=== PATIENT | female | born 1970 | race Caucasian/White ===

== ENCOUNTER 2019-06-18 07:00 | Day surgery (SDC) | payer OTHER ==
[~2019-06-18] VITALS: Ht 175.3 cm; Wt 86.2 kg
[~2019-06-18 07:00] MED LIST: LEVO125T4 PO; LIDOCAINE 2% INJ 100 MG/5 ML SDV (FOR ANES.) As Ordered ONE; NS 1,000 ML IV SCH
[2019-06-18] MEDS ORDERED: PROPOFOL 200 MG/20 ML VIAL As Ordered ONE ×2 (07:41→08:22)
--- NOTE | 2019-06-18 08:31 | ROOR ---
Patient Name: Kayla Buchanan Procedure Date: 06/18/2019 8:10 AM Date of : 1970 Age: 49 Room: [facility] Gender: Female Note Status: Finalized Procedure: Colonoscopy Indications: Heme positive stool Providers: Juan Chowdary DO Referring MD: ANTONI SÁNCHEZ DO Requesting Provider: Medicines: Propofol per Anesthesia Complications: No immediate complications. Procedure: Pre-Anesthesia Assessment: - Prior to the procedure, a History and Physical was performed, and patient medications and allergies were reviewed. The patient is competent. The risks and benefits of the procedure and the sedation options and risks were discussed with the patient. All questions were answered and informed consent was obtained. Patient identification and proposed procedure were verified by the physician, the nurse, the anesthesiologist and the respiratory therapy technician in the endoscopy suite. Mental Status Examination: alert and oriented. Airway Examination: normal oropharyngeal airway and neck mobility. Respiratory Examination: clear to auscultation. CV Examination: normal. Prophylactic Antibiotics: The patient does not require prophylactic antibiotics. Prior Anticoagulants: The patient has taken no previous anticoagulant or antiplatelet agents. ASA Grade Assessment: II - A patient with mild systemic disease. After reviewing the risks and benefits, the patient was deemed in satisfactory condition to undergo the procedure. The anesthesia plan was to use monitored anesthesia care (MAC). Immediately prior to administration of medications, the patient was re-assessed for adequacy to receive sedatives. The heart rate, respiratory rate, oxygen saturations, blood pressure, adequacy of pulmonary ventilation, and response to care were monitored throughout the procedure. The physical status of the patient was re-assessed after the procedure. The Colonoscope was introduced through the anus and advanced to the cecum, identified by appendiceal orifice and ileocecal valve. The colonoscopy was performed without difficulty. The patient tolerated the procedure well. Findings: Non-bleeding internal hemorrhoids were found during retroflexion. The hemorrhoids were small and Grade II (internal hemorrhoids that prolapse but reduce spontaneously). The exam was otherwise without abnormality on direct and retroflexion views. Impression: - Non-bleeding internal hemorrhoids. - The examination was otherwise normal on direct and retroflexion views. - No specimens collected. Recommendation: - Patient has a contact number available for emergencies. The signs and symptoms of potential delayed complications were discussed with the patient. Return to normal activities tomorrow. Written discharge instructions were provided to the patient. - Repeat colonoscopy in 5-10 years for screening purposes. - Return to my office PRN. Juan Chowdary DO 06/18/2019 8:31:09 AM Electronically signed by Juan Chowdary DO Number of Addenda: 0 Note Initiated On: 06/18/2019 8:10 AM Estimated Blood Loss: Estimated blood loss: none.
[2019-06-18 08:50] VITALS: BP 117/73
== END 2019-06-18 08:57 | disposition home or self-care (01) ==
LOC: M OPP 07:00
PROVIDERS: ATTEND Surgery
DX: Z12.11 Encounter for screening for malignant neoplasm of colon (principal); R19.5 Other fecal abnormalities; K64.1 Second degree hemorrhoids; Z79.899 Other long term (current) drug therapy

== ENCOUNTER → 2022-11-23 | Outpatient (CLI) | payer OTHER ==
[~2022-11-23] MED LIST changes: -LIDOCAINE 2% INJ 100 MG/5 ML SDV (FOR ANES.) As Ordered ONE; -NS 1,000 ML IV SCH
== END ==
LOC: M WHC 15:31
PROVIDERS: ATTEND Nurse Practitioner Family
DX: N93.9 Abnormal uterine and vaginal bleeding, unspecified (principal); D25.2 Subserosal leiomyoma of uterus

== ENCOUNTER → 2022-11-23 | Outpatient (CLI) | payer OTHER | LOC: M WHC 15:27 | PROVIDERS: ATTEND Internal Medicine | DX: Z12.31 Encounter for screening mammogram for malignant neoplasm of breast (principal) ==

== ENCOUNTER 2023-03-13 07:58 | Day surgery (SDC) | payer OTHER ==
[~2023-03-13] VITALS: Ht 175.3 cm; Wt 81.2 kg
[~2023-03-13 07:58] MED LIST changes: +PSEU30TA86 PO
[2023-03-13 08:23] LABS: HEMATOCRIT 42.7 % (36.0-47.0); HEMOGLOBIN 13.8 g/dl (12.0-15.5); MEAN CORPUSCULAR HEMOGLOBIN 29.4 pg (27.0-33.0); MEAN CORPUSCULAR HGB CONC 32.3 g/dl (32.0-36.5); PLATELET COUNT, AUTOMATED 301 10^3/uL (150-450); RED BLOOD COUNT 4.69 10^6/uL (4.00-5.40); WHITE BLOOD COUNT 5.6 10^3/uL (4.0-10.0)
[2023-03-13] MEDS ORDERED: propofoL 200 MG/20 ML VIAL As Ordered ONE (10:08)
[2023-03-13] MEDS ORDERED: KETOROLAC 60MG 2ML VIAL As Ordered ONE (10:08)
[2023-03-13] MEDS ORDERED: fentaNYL 100 MCG/2 ML INJECTION As Ordered ONE (10:08)
[2023-03-13] MEDS ORDERED: ONDANSETRON 4MG 2ML VIAL As Ordered ONE (10:08)
[2023-03-13] MEDS ORDERED: MIDAZOLAM INJ 2MG/2ML VIAL As Ordered ONE (10:08)
[2023-03-13] MEDS ORDERED: ACETAMINOPHEN 1000MG 100ML IV BAG As Ordered ONE ×2 (10:08→12:48)
[2023-03-13] MEDS ORDERED: LIDOCAINE 2% 100MG/5ML SDV (FOR ANES.) As Ordered ONE (10:08)
[2023-03-13] MEDS ORDERED: fentaNYL 100 MCG/2 ML INJECTION IV PRN (11:40)
[2023-03-13] MEDS ORDERED: oxyCODONE 5MG TAB PO PRN (11:40)
[2023-03-13] MEDS ORDERED: METOCLOPRAMIDE INJ 10MG/2ML VIAL IV PRN (11:40)
[2023-03-13] MEDS ORDERED: LR 1,000 ML IV SCH ×2 (11:40→12:20)
[2023-03-13] MEDS ORDERED: ONDANSETRON 4MG 2ML VIAL IV PRN (11:40)
[2023-03-13] MEDS ORDERED: ACETAMINOPHEN 500 MG TAB PO ONE (12:20)
[2023-03-13] MEDS ORDERED: diphenhydrAMINE 50MG/ML VIAL As Ordered ONE (12:37)
[2023-03-13 12:50] VITALS: BP 140/78; TEMP 97; O2SAT 97
== END 2023-03-13 12:45 | disposition home or self-care (01) ==
LOC: M SDC 07:58
PROVIDERS: ATTEND Specialist
DX: N84.0 Polyp of corpus uteri (principal); D25.9 Leiomyoma of uterus, unspecified; E03.9 Hypothyroidism, unspecified; R06.83 Snoring; Z79.899 Other long term (current) drug therapy
CPT/HCPCS: 36415; 58558; 85027; 88305; J0131; J1100; J1885; J2250; J2405; J3010